=== PATIENT | female | born 1995 | race Caucasian/White ===

== ENCOUNTER 2017-09-12 18:48 | Emergency (ER) | payer OTHER, BC ==
[~2017-09-12] VITALS: Ht 157.5 cm; Wt 59.9 kg
[~2017-09-12 18:48] MED LIST: ADVIL200 M1 PO
[2017-09-12] MEDS ORDERED: PROCHLORPERAZIN25 MG PR (19:22)
== END 2017-09-12 21:38 | disposition home or self-care (01) ==
LOC: ED 18:48
DX: O21.9 Vomiting of pregnancy, unspecified (principal); O99.330 Smoking (tobacco) complicating pregnancy, unspecified trimester; F17.200 Nicotine dependence, unspecified, uncomplicated
CPT/HCPCS: 80053; 81001; 83690; 84702; 84703; 85025; 96361; 96374; 99284; J2405; J7030

== ENCOUNTER 2017-09-14 09:00 | Emergency (ER) | payer OTHER, BC ==
[~2017-09-14] VITALS: Ht 157.5 cm; Wt 59.9 kg
[~2017-09-14 09:00] MED LIST changes: +PROCHLORPERAZIN25 MG PR
[2017-09-14] MEDS ORDERED: PROMETHAZINE HC25 M1 PO (09:40)
[2017-09-14] MEDS ORDERED: BONJESTA ER 201 EACH PO (10:40)
== END 2017-09-14 13:01 | disposition home or self-care (01) ==
LOC: ED 09:00
DX: O21.0 Mild hyperemesis gravidarum (principal); F17.200 Nicotine dependence, unspecified, uncomplicated; Z3A.01 Less than 8 weeks gestation of pregnancy
CPT/HCPCS: 76801; 76817; 80053; 81001; 84702; 85025; 96361; 96374; 96375; 96376; 99284; J1200; J2765; J7030

== ENCOUNTER 2017-09-16 14:17 | Emergency (ER) | payer OTHER, BC ==
[~2017-09-16] VITALS: Ht 157.5 cm; Wt 59.9 kg
[~2017-09-16 14:17] MED LIST changes: +BONJESTA ER 201 EACH PO; +PROMETHAZINE HC25 M1 PO
[2017-09-16] MEDS ORDERED: ONDANSETRON ODT8 MG PO (18:43)
== END 2017-09-16 19:06 | disposition home or self-care (01) ==
LOC: ED 14:17
DX: O99.281 Endocrine, nutritional and metabolic diseases complicating pregnancy, first trimester (principal); E86.0 Dehydration; O21.9 Vomiting of pregnancy, unspecified; O99.331 Smoking (tobacco) complicating pregnancy, first trimester; F17.200 Nicotine dependence, unspecified, uncomplicated; Z3A.01 Less than 8 weeks gestation of pregnancy
CPT/HCPCS: 96361; 96374; 96375; 99283; J2550; J7030

== ENCOUNTER 2018-04-25 02:58 | Inpatient (IN) | payer OTHER, BC ==
[~2018-04-25] VITALS: Ht 157.5 cm; Wt 73.0 kg
[~2018-04-25 02:58] MED LIST changes: +ONDANSETRON ODT8 MG PO
--- NOTE | 2018-04-26 10:16 | PR ---
[facility] [address] [place], [place] [address] Signed PP Progress Notes Datetime Report Generated by CPN: 04/26/2018 10:16 SUBJECTIVE: [id number] Pain: Within normal limits Nausea/Vomiting: Denies Flatus: Yes Bowel Movement: No Vital Signs: [id number] Vital Signs: Reviewed; Within Normal Limits EXAM: [id number] Cardiovascular: Normal Respiratory: Normal Abdomen/Uterus: Normal Lochia: Normal Vulva/Perineum: Not Done Breasts: Not Done CVA Tenderness: Normal Extremities: Normal Incision: Not Applicable Progress: Normal Exam Comments: Fundus firm U-2 nontender IMPRESSION/PLAN/PROCEDURES: [id number] Impression: Normal progression Plan: Continue present management Progress Notes: Pt seen and examined. Doing well. Ambulating, voiding, and tolerating full diet. Pain and lochia minimal. well, however baby did lose weight and is not ready for d/c per peds. Anticipate d/c home. No questions or concerns. Signing Physician: Rebecca Knight DO Copies: ~ *Electronically Signed* 04/26/18 1016 REBECCA KNIGHT DO PATIENT NAME: MARKER,LENORA BERNALE PROGRESS NOTE DATE OF : 89 PHYSICIAN: REBECCA KNIGHT DO RPT #: [id number] REPORT IS CONFIDENTIAL AND NOT TO BE RELEASED WITHOUT AUTHORIZATION
--- NOTE | 2018-04-27 07:03 | PR ---
[facility] [address], [place] [address] Signed PP Progress Notes Datetime Report Generated by CPN: 04/27/2018 07:03 SUBJECTIVE: [id number] Pain: Within normal limits Nausea/Vomiting: Denies Flatus: Yes Bowel Movement: Yes Vital Signs: [id number] Vital Signs: Reviewed; Within Normal Limits EXAM: [id number] Cardiovascular: Normal Respiratory: Normal Abdomen/Uterus: Normal Lochia: Normal Vulva/Perineum: Normal Breasts: Not Done CVA Tenderness: Normal Extremities: Normal Incision: Not Applicable Progress: Normal Exam Comments: Pt was concerned about perineum. Examined w/ RN and healing well and pt reassured. Fundus firm U-2 nontender IMPRESSION/PLAN/PROCEDURES: [id number] Impression: Normal progression Plan: Discharge Progress Notes: Pt seen and examined. Doing well. ambulating voiding, and tolerating full diet. Pain and lochia minimal. well. No fevers / chills. Was worried about perineum, and on exam perineum appears normal and well healing. Discharge home today. Reviewed d/c instructions in detail. All questions answered. Signing Physician: Rebecca Knight DO Copies: ~ *Electronically Signed* 04/27/18 07 REBECCA KNIGHT DO PATIENT NAME: LENORA PINEDA PROGRESS NOTE DATE OF : [birth year] PHYSICIAN: REBECCA KNIGHT #: [id number] REPORT IS CONFIDENTIAL AND NOT TO BE RELEASED WITHOUT AUTHORIZATION
== END 2018-04-27 11:50 | disposition home or self-care (01) | DRG 806 ==
LOC: FBCO 02:58 → FBC 03:40
PROVIDERS: ADMIT Obstetrics & Gynecology
PROC: 10E0XZZ Delivery of Products of Conception, External Approach (ICD-10-PCS; principal; 2018-04-25)
PROC: 0KQM0ZZ Repair Perineum Muscle, Open Approach (ICD-10-PCS; 2018-04-25)
PROC: 00HU33Z Insertion of Infusion Device into Spinal Canal, Percutaneous Approach (ICD-10-PCS; 2018-04-25)
PROC: 3E0R3BZ Introduction of Anesthetic Agent into Spinal Canal, Percutaneous Approach (ICD-10-PCS; 2018-04-25)
DX: O69.1XX0 Labor and delivery complicated by cord around neck, with compression, not applicable or unspecified (principal); O99.324 Drug use complicating childbirth; Z37.0 Single live birth; Z3A.38 38 weeks gestation of pregnancy; O70.1 Second degree perineal laceration during delivery; O43.113 Circumvallate placenta, third trimester; F12.90 Cannabis use, unspecified, uncomplicated
CPT/HCPCS: 01960; 36415; 85027; J2590; J7120